=== PATIENT | female | born 1990 | race Caucasian/White ===

== ENCOUNTER → 2025-07-05 | Outpatient (CLI) | payer OTHER ==
[2025-07-05 10:29] LABS: PLATELET COUNT, AUTOMATED 307 10^3/uL (150-450)
[2025-07-05 10:57] LABS: GLUCOSE CHALLENGE TEST 1 HOUR 124 MG/DL (LESS THAN 140)
[2025-07-05 11:54] LABS: Trichomonas vaginalis (AMP) NOT DETECTED (NEGATIVE)
[2025-07-05 12:18] LABS: GC DNA AMPLIFICATION NEGATIVE (NEGATIVE)
[2025-07-05 15:45] LABS: HIV 1&2 SCREEN NEGATIVE (NEGATIVE)
[2025-07-05 15:53] LABS: HEPATITIS C VIRUS ABY INDEX 0.02 INDEX (<0.8)
== END ==
LOC: M PLALAB 08:38
PROVIDERS: ATTEND Obstetrics & Gynecology
DX: Z34.80 Encounter for supervision of other normal pregnancy, unspecified trimester (principal)